=== PATIENT | male | born 1980 | race Caucasian/White ===

== ENCOUNTER 2016-09-06 18:55 | Observation (INO) | payer OTHER ==
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
--- NOTE | ~2016-09-06 | DS ---
Discharge Summary [facility] [address] [place]. [address] NAME: CORY CHRISTIE : 84 STATUS : DIS Vanessa PAT#: [id number] AGE: 36 ADM/REG DATE : 09/06/16 MR#: [id number] REPORT SERV DATE: 09/09/16 DICTATED BY: DIEGO BRAVO DATE: 09/08/16 REPORT STATUS : Draft TRANSCRIBED BY: MODL DATE: 09/08/16 ADMISSION DATE: 09/06/2016 DISCHARGE DATE: 09/08/2016 DISCHARGE DIAGNOSES: 1. Acute pulmonary embolus left lower lobe with acute pulmonary infarct. 2. Hemoptysis, stable with a most recent hemoglobin and hematocrit at 13.5 and 39.2. 3. Sinus tachycardia. 4. History of posttraumatic stress disorder and anxiety. 5. History of sickle cell trait. DISCHARGE MEDICINES: Xarelto 15 mg p.o. twice a day for a total of 17 days then to start 20 mg daily thereafter, Zoloft 100 mg daily, ibuprofen p.r.n., oxycodone APAP 10/325 one tablet every four hours p.r.n. for pain, tramadol 50 mg six hours p.r.n. for pain. HISTORY OF PRESENT ILLNESS: A 36-year-old white male who presented to the [facility] ER with hemoptysis. He had actually been inpatient at [facility] and undergone evaluation and initiation of treatment for pulmonary embolus and has been discharged from that facility. Please see the initial H and P of Dr. Eleno Rao as the patient was admitted to the Hospitalist Service here for further evaluation and treatment. Initially, lab work was ordered and followed. A CTA of the chest was performed for confirmatory diagnosis which did show a moderate volume left lower lobe pulmonary embolus, small to moderate left pleural effusion, atelectasis basilar aspect of the right lower lobe and right middle lobe and lingula. The patient was continued on his Xarelto dosage which he had been given a prescription for already. Symptomatically, the patient had some mild shortness of breath and was somewhat anxious, however, this improved quite rapidly. His hemoptysis was extremely mild. His hemoglobin and hematocrit have been stable. He has been on room air. He is off antibiotics and he has outpatient followup that had been already established with automotive leasing sales representative, Dr. Sarnacki. I have also instructed the patient to follow up with his primary care, Dr. Nia Rock and given his history of PTSD anxiety, I have counseled and recommended outpatient psychiatric followup. He will continue the Xarelto for a course of three months and also can get outpatient hematology studies. The patient's liver enzymes were within normal limits with an ALT of 17, AST of 15. The patient was in agreement with this plan going forward. Questions were answered at bedside. NELSON/SHAUN Diego Bravo NP / [id number] CC: Maycol Ashley M.D. Discharge Summary [address] [address] NAME: CORY CHRISTIE : 84 STATUS : DIS Vanessa PAT#: [id number] AGE: 36 ADM/REG DATE : 09/06/16 MR#: [id number] REPORT SERV DATE: 09/09/16 DICTATED BY: DIEGO BRAVO DATE: 09/08/16 REPORT STATUS : Draft TRANSCRIBED BY: SHAUN DATE: 09/08/16 Nia Rock M.D.
[2016-09-06 15:22] LABS: BASOPHILS 0.2 %; BASOPHILS ABSOLUTE 0.02 10/3/uL (0.0-0.16); EOSINOPHILS 0.3 %; EOSINOPHILS ABSOLUTE 0.03 10/3/uL (0.0-0.53); ER CBC TAT 0 Hrs 05 Mins; HEMATOCRIT 41.5 % (40.0-51.0); HEMOGLOBIN 14.2 g/dL (13.6-17.8); IMMATURE GRANULOCYTES 0.4 %; IMMATURE GRANULOCYTES ABSOLUTE 0.04 10/3/uL (0.0-0.11); LYMPHOCYTES ABSOLUTE 1.02 10/3/uL (0.67-4.30); MANUAL DIFF NO %; MEAN CORPUS HGB CONC 34.2 g/dL (32.0-36.0); MEAN CORPUSCULAR HEMOGLOB 27.6 pg (26.0-34.0); MEAN CORPUSCULAR VOLUME 80.6 fL (80-100); MEAN PLATELET VOLUME 9.5 fL (9.2-13.0); MONOCYTES ABSOLUTE 1.02 10/3/uL (0.21-1.20); NEUTROPHILS 81.1 %; NEUTROPHILS ABSOLUTE 9.21 10/3/uL (2.02-8.40); PLATELET COUNT 320 10/3/uL (150-400); RBC DISTRIBUTION WIDTH 12.3 % (12.0-16.0); RED CELL COUNT 5.15 10/6/uL (4.7-6.1); WHITE BLOOD CELLS 11.3 10/3/uL (4.5-10.5)
[2016-09-06 15:33] LABS: INTERNATIONAL NORMAL RATI 2.7 UNITS (-); PARTIAL THROMBO TIME 59.2 SEC (22.5-37.2)
[2016-09-06 15:34] LABS: PARTIAL THROMBO TIME 65.3 SEC (22.5-37.2)
[2016-09-06 15:36] LABS: PROTIME (NOT ORD) 28.7 SEC (12.0-14.5)
[2016-09-06 15:39] LABS: CALCIUM, SERUM 9.2 MG/DL (8.5-10.4); CHEST PAIN PROFILE TAT 0 Hrs 22 Mins; CHLORIDE, SERUM 99 MMOL/L (96-112); CO2 (CARBON DIOXIDE) 28 MMOL/L (24-34); CREATININE 1.11 MG/DL (0.70-1.30); GFR AFRICAN AMERICAN 100 ML/MIN (>=60); GFR NON AFRICAN AMERICAN 86 ML/MIN (>=60); GLUCOSE, SERUM 122 MG/DL (60-99); POTASSIUM, SERUM 3.8 MMOL/L (3.5-5.3); SODIUM, SERUM 136 MMOL/L (135-148); TROPONIN I <0.02 NG/ML (<0.05)
[2016-09-06 15:40] LABS: BUN (BLOOD UREA NITROGEN) 13 MG/DL (6-23)
[2016-09-06] MEDS ORDERED: ZOL100 PO (19:21)
[2016-09-06] MEDS ORDERED: SLEEP AID OTC PO (19:22)
[2016-09-06] MEDS ORDERED: ADVIL PO (19:23)
[2016-09-06] MEDS ORDERED: XARELTO15 MG PO (19:26)
[2016-09-06] MEDS ORDERED: ENDOCET1 TA3 PO (19:27)
[2016-09-06] MEDS ORDERED: LEVAQUIN750 MG PO (19:27)
[2016-09-06] MEDS ORDERED: ULTRAM50 PO (19:28)
[2016-09-06] MEDS ORDERED: XARELTO20 MG PO (19:30)
[2016-09-07 05:14] LABS: BUN (BLOOD UREA NITROGEN) 12 MG/DL (6-23); CALCIUM, SERUM 9.2 MG/DL (8.5-10.4); CHLORIDE, SERUM 100 MMOL/L (96-112); CO2 (CARBON DIOXIDE) 30 MMOL/L (24-34); CREATININE 0.91 MG/DL (0.70-1.30); GFR AFRICAN AMERICAN 127 ML/MIN (>=60); GFR NON AFRICAN AMERICAN 110 ML/MIN (>=60); GLUCOSE, SERUM 94 MG/DL (60-99); POTASSIUM, SERUM 3.9 MMOL/L (3.5-5.3); SODIUM, SERUM 138 MMOL/L (135-148)
[2016-09-07 05:30] LABS: BASOPHILS 0.1 %; BASOPHILS ABSOLUTE 0.01 10/3/uL (0.0-0.16); EOSINOPHILS 0.4 %; EOSINOPHILS ABSOLUTE 0.04 10/3/uL (0.0-0.53); HEMATOCRIT 39.3 % (40.0-51.0); HEMOGLOBIN 13.5 g/dL (13.6-17.8); IMMATURE GRANULOCYTES 0.4 %; IMMATURE GRANULOCYTES ABSOLUTE 0.05 10/3/uL (0.0-0.11); LYMPHOCYTES ABSOLUTE 1.67 10/3/uL (0.67-4.30); MEAN CORPUS HGB CONC 34.4 g/dL (32.0-36.0); MEAN CORPUSCULAR HEMOGLOB 28.2 pg (26.0-34.0); MEAN PLATELET VOLUME 9.7 fL (9.2-13.0); MONOCYTES 11.1 %; MONOCYTES ABSOLUTE 1.23 10/3/uL (0.21-1.20); NEUTROPHILS ABSOLUTE 8.12 10/3/uL (2.02-8.40); PLATELET COUNT 338 10/3/uL (150-400); RBC DISTRIBUTION WIDTH 12.2 % (12.0-16.0); RED CELL COUNT 4.79 10/6/uL (4.7-6.1); WHITE BLOOD CELLS 11.1 10/3/uL (4.5-10.5)
[2016-09-07 05:32] LABS: MANUAL DIFF NO %
[2016-09-07 12:32] LABS: PROCALCITONIN 0.06 ng/mL (<0.5)
[2016-09-07 12:52] LABS: CHOL/HDL RATIO(NOT ORDER) 5.4 (0-5); CHOLESTEROL 141 MG/DL (< 200); HDL CHOLESTEROL 26 MG/DL (> 39); LDL CHOLESTEROL 86 MG/DL (< 130); NON-HDL CHOLESTEROL 115 MG/DL (< 160); TRIGLYCERIDE 149 MG/DL (< 150)
[2016-09-07 14:44] LABS: ALBUMIN 3.1 G/DL (3.5-5.0); ALKALINE PHOSPHATASE 73 U/L (45-117); SGOT(AST) 15 U/L (5-40); SGPT(ALT) 17 U/L (5-65); TOTAL BILIRUBIN 0.3 MG/DL (0-1.2); TOTAL PROTEIN 7.3 G/DL (6.0-8.5)
[2016-09-07 14:47] LABS: DIRECT BILIRUBIN < 0.1 MG/DL (0.0-0.4); INDIRECT BILIRUBIN(NOT ORDER) 0.2 MG/DL (0.1-0.9)
[2016-09-08 06:34] LABS: BASOPHILS 0.2 %; BASOPHILS ABSOLUTE 0.02 10/3/uL (0.0-0.16); EOSINOPHILS 0.5 %; EOSINOPHILS ABSOLUTE 0.05 10/3/uL (0.0-0.53); HEMATOCRIT 39.2 % (40.0-51.0); HEMOGLOBIN 13.5 g/dL (13.6-17.8); IMMATURE GRANULOCYTES 0.7 %; IMMATURE GRANULOCYTES ABSOLUTE 0.06 10/3/uL (0.0-0.11); LYMPHOCYTES 16.8 %; LYMPHOCYTES ABSOLUTE 1.54 10/3/uL (0.67-4.30); MEAN CORPUS HGB CONC 34.4 g/dL (32.0-36.0); MEAN CORPUSCULAR HEMOGLOB 28.3 pg (26.0-34.0); MEAN CORPUSCULAR VOLUME 82.2 fL (80-100); MEAN PLATELET VOLUME 9.3 fL (9.2-13.0); MONOCYTES 10.8 %; MONOCYTES ABSOLUTE 0.99 10/3/uL (0.21-1.20); PLATELET COUNT 364 10/3/uL (150-400); RBC DISTRIBUTION WIDTH 12.4 % (12.0-16.0); RED CELL COUNT 4.77 10/6/uL (4.7-6.1); WHITE BLOOD CELLS 9.2 10/3/uL (4.5-10.5)
[2016-09-08 06:36] LABS: MANUAL DIFF NO %
[2016-09-08 06:48] LABS: BUN (BLOOD UREA NITROGEN) 13 MG/DL (6-23); CALCIUM, SERUM 9.2 MG/DL (8.5-10.4); CHLORIDE, SERUM 101 MMOL/L (96-112); CO2 (CARBON DIOXIDE) 28 MMOL/L (24-34); CREATININE 0.99 MG/DL (0.70-1.30); GFR AFRICAN AMERICAN 115 ML/MIN (>=60); GFR NON AFRICAN AMERICAN 99 ML/MIN (>=60); GLUCOSE, SERUM 101 MG/DL (60-99); POTASSIUM, SERUM 4.5 MMOL/L (3.5-5.3); SODIUM, SERUM 136 MMOL/L (135-148)
== END 2016-09-08 15:15 | disposition home or self-care (01) ==
LOC: ER 18:55 → 7NO 19:07
PROVIDERS: Emergency Medicine; Hospitalist; Internal Medicine
DX: I26.09 Other pulmonary embolism with acute cor pulmonale (principal); F43.10 Post-traumatic stress disorder, unspecified; Z79.01 Long term (current) use of anticoagulants; Z79.899 Other long term (current) drug therapy; Z90.49 Acquired absence of other specified parts of digestive tract; Z98.890 Other specified postprocedural states; Z87.891 Personal history of nicotine dependence; D57.3 Sickle-cell trait
CPT/HCPCS: 71020; 71275; 80048; 80061; 80076; 83735; 84145; 84484; 85025; 85610; 85730; 94640; 96374; 99285; A9270-GY; G0378; Q9967

== ENCOUNTER 2016-09-11 14:12 | Emergency (ER) | payer OTHER ==
[~2016-09-11 14:12] MED LIST: ADVIL PO; ENDOCET1 TA3 PO; LEVAQUIN750 MG PO; SLEEP AID OTC PO; ULTRAM50 PO; XARELTO15 MG PO; XARELTO20 MG PO; ZOL100 PO
== END 2016-09-11 14:55 | disposition home or self-care (01) ==
LOC: ER 14:12
DX: M79.604 Pain in right leg (principal); F43.10 Post-traumatic stress disorder, unspecified; Z79.899 Other long term (current) drug therapy
CPT/HCPCS: 93005; 93971; 96372; 99284; J1885